=== PATIENT | female | born 1995 | race African-American/Black ===

== ENCOUNTER 2017-07-24 20:25 | Inpatient (IN) | payer BC ==
[~2017-07-24] VITALS: Ht 160 cm; Wt 96.2 kg
[2017-07-24] MEDS ORDERED: LACTATED RINGERS 1,000 ML IV SCH ×2 (20:35→21:00)
[2017-07-24] MEDS ORDERED: DEXT 5%/LR + PITOCIN 20UNITS/L 1,000 ML IV SCH (20:35)
[2017-07-24] MEDS ORDERED: CARBOPROST TROMETHAMINE 250 MCG/ML AMPUL IM PRN (20:45)
[2017-07-24] MEDS ORDERED: IBUPROFEN 800MG TABLET PO PRN (20:45)
[2017-07-24] MEDS ORDERED: METHYLERGONOVINE MALEATE 0.2 MG/ML IM PRN (20:45)
[2017-07-24] MEDS ORDERED: PREN-88 PO (20:50)
[2017-07-24] MEDS ORDERED: FOLI-43 PO (20:50)
[2017-07-24] MEDS: MISOPROSTOL 100MCG TABLET RC SCH (21:08)
[2017-07-24 22:12] LABS: HEMATOCRIT. 32.8 % (36.0-48.0); MEAN CORPUSCULAR HEMOGLOBIN 29.9 pg (28.0-32.0); MEAN CORPUSCULAR VOLUME 88.9 fL (81.0-99.0); MEAN PLATELET VOLUME 10.9 fl (7.4-10.4); PLATELET 210 x1000/uL (130-400); RED BLOOD CELL COUNT 3.68 mill/uL (4.2-5.4); RED CELL DISTRIBUTION WIDTH 14.3 % (11.6-14.6)
[2017-07-24 22:17] LABS: CHLORIDE 104 mEq/L (98-107)
[2017-07-24 22:20] LABS: CARBON DIOXIDE 21 mEq/L (21-32)
[2017-07-24 22:22] LABS: PARTIAL THROMBOPLASTIN TIME 27.5 sec (23.4-31.0); PROTHROMBIN TIME 10.4 sec (9.4-11.6)
[2017-07-24 22:51] LABS: HEPATITIS B SURFACE ANTIGEN NEGATIVE; RUBELLA IGG 38.4 IU/mL (4.99-10)
[2017-07-24 23:32] LABS: PLATELET ESTIMATE NORMAL
[2017-07-25] MEDS: MISOPROSTOL 100MCG TABLET RC SCH (02:49)
[2017-07-25 03:35] LABS: CLARITY URINE CLOUDY (CLEAR); COLOR URINE RED (YELLOW); GLUCOSE URINE NEGATIVE (NEGATIVE); KETONES URINE 3+ (NEGATIVE); LEUKOCYTE ESTERASE URINE 2+ (NEGATIVE); NITRITE URINE NEGATIVE (NEGATIVE); OCCULT BLOOD URINE 3+ (NEGATIVE); PROTEIN URINE 1+ (NEGATIVE); SPECIFIC GRAVITY URINE 1.009 (1.005-1.030); UROBILINOGEN URINE 0.2 E.U./dL (0.2-1.0)
[2017-07-25 04:41] LABS: *AMPHETAMINES SCREEN URINE NEGATIVE (NEGATIVE); *BENZODIAZEPINES SCREEN URINE NEGATIVE (NEGATIVE); *COCAINE SCREEN URINE NEGATIVE (NEGATIVE); CANNABINOID URINE SCREEN NEGATIVE (NEGATIVE); METHADONE URINE SCREEN NEGATIVE (NEGATIVE); OPIATES URINE SCREEN NEGATIVE (NEGATIVE); PHENCYCLIDINE URINE SCREEN NEGATIVE (NEGATIVE)
[2017-07-25 04:42] LABS: *BARBITURATES SCREEN URINE NEGATIVE (NEGATIVE)
[2017-07-25] MEDS ORDERED: MISOPROSTOL 200MCG TABLET VG NR (07:15)
[2017-07-25] MEDS ORDERED: MISOPROSTOL 200MCG TABLET RC NR (07:15)
[2017-07-25] MEDS ORDERED: DEXT 5%/LR + PITOCIN 20UNITS/L 1,000 ML IV SCH (07:49)
[2017-07-25] MEDS ORDERED: IBUPROFEN 800MG TABLET PO PRN (08:00)
[2017-07-25] MEDS ORDERED: IBUPROFEN 400MG TABLET PO PRN (08:00)
[2017-07-25] MEDS ORDERED: RHO(D) IMMUNE GLOBULIN 300 MCG/SYR IM PRN (08:00)
[2017-07-25 08:50] VITALS: BP 102/52
[2017-07-25 09:30] VITALS: BP 110/50
[2017-07-25 16:00] VITALS: BP 107/52
[2017-07-26 00:05] VITALS: BP 98/48
[2017-07-26 04:15] VITALS: BP 98/50
[2017-07-26 07:15] LABS: BASOPHILS % 0.4 % (0.0-2.0); EOSINOPHILS % 2.4 % (0.0-5.0); HEMATOCRIT. 31.7 % (36.0-48.0); HEMOGLOBIN. 10.5 g/dL (12.0-16.0); LYMPHOCYTES % 25.1 % (20.0-50.0); MEAN CORPUSCULAR HEMOGLOBIN 29.9 pg (28.0-32.0); MEAN PLATELET VOLUME 10.6 fl (7.4-10.4); NEUTROPHILS % 66.1 % (40.0-76.0); PLATELET 186 x1000/uL (130-400); RED BLOOD CELL COUNT 3.52 mill/uL (4.2-5.4); RED CELL DISTRIBUTION WIDTH 14.2 % (11.6-14.6)
[2017-07-26 07:43] VITALS: BP 102/51
[2017-07-26] MEDS ORDERED: FERROUS SULFATE 325MG TABLET PO SCH (12:10)
== END 2017-07-26 15:18 | disposition home or self-care (01) | DRG 541 ==
LOC: L&D 20:25 → OBSVTOIN 20:25 → 7EST PP/OB 07-25 08:45
PROVIDERS: ADMIT Obstetrics & Gynecology; ATTEND Obstetrics & Gynecology
PROC: 10D17ZZ Extraction of Products of Conception, Retained, Via Natural or Artificial Opening (ICD-10-PCS; principal; 2017-07-25 07:30)
DX: O73.1 Retained portions of placenta and membranes, without hemorrhage (principal); Z37.1 Single stillbirth; E44.1 Mild protein-calorie malnutrition; O25.12 Malnutrition in pregnancy, second trimester; Z3A.23 23 weeks gestation of pregnancy
CPT/HCPCS: 36415; 80053; 80305; 81001; 84550; 85025; 85384; 85610; 85730; 86592; 86703; 86762; 86850; 86900; 87340; 88307; J2590; J7120